=== PATIENT | male | born 1960 | race Hispanic/Latino ===

== ENCOUNTER 2020-11-01 09:24 | Observation (INO) | payer BC ==
[2020-11-01] MEDS ORDERED: Aspirin Chewable 81 MG TAB ONE (09:38)
[2020-11-01] MEDS ORDERED: Nitroglycerin 0.4 MG TAB 1 EACH ONE (09:39)
[2020-11-01 09:53] LABS: #Basophils 0.1 10x3/uL (0.0-0.2); #Eosinphils 0.5 10x3/uL (0.0-0.5); #Monocytes 0.8 10x3/uL (0.0-1.1); #Neutrophils 6.7 10x3/uL (1.5-8.4); %Basophils 0.7 % (0.0-2.0); %Eosinophils 5.2 % (0.0-6.0); %Lymphocytes 15.8 % (18.0-47.0); %Monocytes 8.3 % (0.0-10.0); %Neutrophils 69.7 % (40.0-75.0); Hemoglobin 16.2 g/dL (13.5-17.5); Mean Corpuscular HGB CONC 33.8 g/dL (32.0-36.0); Mean Corpuscular Hemoglobin 31.6 pg (27.0-33.0); Mean Corpuscular Volume 93.6 fl (81.2-95.1); Mean Platelet Volume 10.6 fl (7.4-10.4); Platelet Count 206 10x3/uL (150-450); Red Blood Cell (RBC) Count 5.13 10x6/uL (4.32-5.72); White Blood Cell (WBC) Count 9.6 10x3/uL (3.5-10.5)
[2020-11-01 10:05] LABS: ALT (SGPT) 44 U/L (8-55); AST (SGOT) 22 U/L (5-34); Albumin 4.3 g/dL (3.4-4.8); Alkaline Phosphatase 139 U/L (40-110); Anion Gap 11 mmol/L (10-20); BUN (Urea Nitrogen) 16 mg/dL (8.4-25.7); Bilirubin, Total 0.8 mg/dL (0.2-1.2); Calc. Creatinine Clearance 0 mL/min (70-130); Calcium 9.1 mg/dL (7.8-10.44); Carbon Dioxide 27 mmol/L (23-31); Chloride 105 mmol/L (98-107); Glucose 119 mg/dL (80-115); Potassium 3.9 mmol/L (3.5-5.1); Protein, Total 7.3 g/dL (5.8-8.1); Sodium 139 mmol/L (136-145)
[2020-11-01] MEDS ORDERED: Nitroglycerin 0.4 MG TAB (25 Tab Bottle) SL PRN (12:17)
[2020-11-01 13:03] LABS: Troponin I Less than 0.010 ng/mL (< 0.028)
[2020-11-01 13:40] LABS: Free T4 (Free Thyroxine) 1.14 ng/dL (0.70-1.48); Thyroid Stimulating Hormone 1.4815 uIU/mL (0.35-4.94)
[2020-11-01 16:04] LABS: Troponin I Less than 0.010 ng/mL (< 0.028)
[2020-11-01 18:25] VITALS: BMI 29.7
[2020-11-01] MEDS ORDERED: Enoxaparin Sodium 40 MG/0.4 ML SYRINGE SC SCH (18:30)
[2020-11-01] MEDS: Carvedilol 3.125 MG TAB PO SCH (18:32)
[2020-11-02 06:31] LABS: Cardiac Risk 4.1 (Less than 4.5)
[2020-11-02] MEDS: Carvedilol 3.125 MG TAB PO SCH (08:43)
[2020-11-02 08:49] VITALS: BP 129/92; TEMP 97.6
[2020-11-02] MEDS ORDERED: Aspirin Chewable 81 MG TAB PO SCH (09:00)
[2020-11-02 17:57] LABS: SARS-CoV-2 PCR by NAA Not Detected (NotDetected)
[2020-11-02] MEDS ORDERED: Enoxaparin Sodium 40 MG/0.4 ML SYRINGE SC SCH (21:00)
== END 2020-11-02 10:58 | disposition home or self-care (01) ==
LOC: CSHERS 09:24 → SUATTDRO 09:24 → INTOOBSV 18:19 → CSHTELE 18:19
PROVIDERS: ADMIT Family Medicine; ATTEND Internal Medicine
DX: R07.89 Other chest pain (principal); I73.9 Peripheral vascular disease, unspecified; I71.4 Abdominal aortic aneurysm, without rupture; I10 Essential (primary) hypertension; E78.5 Hyperlipidemia, unspecified; J30.9 Allergic rhinitis, unspecified; E05.90 Thyrotoxicosis, unspecified without thyrotoxic crisis or storm; Z20.822 Contact with and (suspected) exposure to COVID-19; Z82.49 Family history of ischemic heart disease and other diseases of the circulatory system; Z79.899 Other long term (current) drug therapy; Z88.8 Allergy status to other drugs, medicaments and biological substances
CPT/HCPCS: 36415; 71045; 71275; 80053; 80061; 83880; 84439; 84443; 84484; 85025; 85379; 87635; 93005; 93306; G0378; U0003; U0005

== ENCOUNTER 2023-04-01 13:12 | Outpatient (CLI) | payer BC | END 2023-04-01 13:13 | disposition home or self-care (01) | LOC: CSHRAD 13:12 | PROVIDERS: ATTEND Family Medicine | DX: R05.9 Cough, unspecified (principal) | CPT/HCPCS: 71046 ==